=== PATIENT | male | born 1960 | race Caucasian/White ===

== ENCOUNTER 2017-04-08 11:01 | Outpatient (CLI) | payer BC ==
[~2017-04-08] VITALS: Ht 175.3 cm; Wt 76.8 kg
--- NOTE | ~2017-04-08 | HEMODYNAMI ---
PATIENT:SONAL CUNNINGHAM MEDICAL RECORD: [id number] : 56 LOCATION:[facility] ADMISSION DATE: 04/08/17 Generatedon:04/08/201713:20 Patient name: SONAL CUNNINGHAM Patient #: [id number] SSN: DO B: 1960 Date of study: 04/08/2017 Page: Of Hemodynamic Procedure Report Patient Data Patient Demographics Procedure consent was obtained First Name: SONAL Gender: Male Last Name: MARISA : 1960 Patient #: [id number] Age: 56 year(s) Race: Unknown Additional ID: [id number] Contact details Address: [address] [place] [address] ROAD State: [place] City: [place] Zip code: [address] Admission Admission Data Admission Date: 04/08/2017 Admission Time: 11:01 Procedure Procedure Types Cath Procedure Diagnostic Procedure ROLANDO Procedure Description Procedure Date Procedure Date: 04/08/2017 Procedure Start Time: 12:57 Procedure End Time: 13:19 Procedure Staff Name Function Jose Lewis MD Performing Physician Jagdeep Jo RT Monitor Mario Banks MD Additional personnel Arin Benitez RN Nurse Valentina Gonzalez RT Plate Conditioner Sam Vora Nremt Procedure Data Procedure Complications No complications Procedure Medications Medication Administration Route Dosage Oxygen NC 2 l/min Hurricaine Stratham P[address]O. [address] Sprays Hemodynamics Rest Heart Rate: 70 (bpm) Snapshots Pre Cath Intra NCS Post Cath Vital Signs Time Heart Resp SPO2 etCO2 NIBP (mmHg) Rhythm Pain Sedation Rate (ipm) (%) (mmHg) Status Level (bpm) 12:38:39 63 18 100 37.3 134/67(109) NSR 0 (11) 10(A) , No pain 12:43:44 64 14 100 38.8 132/72(108) NSR 0 (11) 10(A) , No pain 12:48:00 66 15 99 37.3 128/66(102) NSR 0 (11) 10(A) , No pain 12:52:20 65 17 100 38.8 125/69(105) NSR 0 (11) 10(A) , No pain 12:56:38 81 29 99 28.9 122/71(104) NSR 0 (11) 9(A) , No pain 13:01:38 79 16 99 24.3 Measuring NSR 0 (11) 9(A) , No pain 13:01:39 79 16 99 30.4 158/96(133) NSR 0 (11) 9(A) , No pain 13:05:58 67 23 100 31.9 126/68(97) NSR 0 (11) 9(A) , No pain 13:10:16 64 15 100 37.3 120/63(87) NSR 0 (11) 9(A) , No pain 13:14:32 61 16 100 38.8 109/59(80) NSR 0 (11) 9(A) , No pain 13:18:46 62 15 100 38.8 109/59(85) NSR 0 (11) 10(A) , No pain Medications Time Medication Route Dose Verified Delivered Reason Notes Effective ness by by 12:39:12 Oxygen NC 2 Arin Hinkle used for l/min Eli Benitez RN procedure 12:54:50 Hurricaine P[address] Arin Garcia Per Stratham Sprays Eli Vogel. John physician Procedure Log Time Note 12:15:39 Jagdeep Jo RT(R) sent for patient. Start room use. 12:30:24 [facility] Machinery Mover present for ROLANDO. 12:34:13 Patient arrived from Pre/Post Procedure Room to [facility] 3. Patient remains on bed/stretcher for procedure. 12:36:54 Time tracking: Regular hours 12:36:58 Plan of Care:Hemodynamics will remain stable., Cardiac rhythm will remain stable., Comfort level will be maintained., Respiratory function will remain adequate., Patient/ family verbilizes understanding of procedure., Procedure tolerated without complication., Recovers from procedure without complications.. 12:37:24 Warm blankets applied, and catalina hugger turned on for patient comfort. 12:37:25 Correct patient and procedure confirmed by team. 12:37:26 Signed procedure consent form obtained from patient. 12:37:27 ECG and BP/O2 sat monitors applied to patient. 12:37:29 Vital chart was started 12:38:25 Baseline sample Acquired. 12:38:28 Rhythm: sinus rhythm 12:38:29 Full Disclosure recording started 12:38:37 H&P Date Dictated: 04/08/2017 Within 30 days and on chart., H&P Addendum completed by physician on day of procedure. (MUST COMPLETE FOR ALL OUTPATIENTS). 12:38:38 Pre-procedure instructions explained to patient. 12:38:39 Pre-op teaching completed and patient verbalized understanding. 12:38:44 Family in patients room. 12:38:45 Patient NPO since Midnight. 12:38:47 Is the patient allergic to Iodine/contrast media? No. 12:38:48 Is patient on blood thinner?No 12:38:50 Patient diabetic? No. 12:38:52 Previous problem with sedation/anesthesia? No ? 12:38:53 Snore? No 12:38:54 Sleep apnea? No 12:38:55 Deviated septum? No 12:38:55 Opens mouth fully? Yes 12:38:56 Sticks out tongue? Yes 12:38:58 Airway obstruction? No ? 12:38:59 Dentures? No ? 12:39:12 Oxygen 2 l/min NC was administered by Arin Benitez RN; used for procedure; 12:41:54 Patient pain scale 0/10 ?. 12:42:04 IV patent on arrival in left antecubital with 0.9% NaCl at [facility]. 12:42:22 Lab results completed and on chart. 12:42:25 Alarms reviewed by Renea Batista 12:44:02 Pt prepped for ROLANDO. 12:52:33 Mario Banks MD present and monitoring patient for TIVA. 12:53:03 --------ALL STOP TIME OUT------ 12:53:04 Final Timeout: patient, procedure, and site verified with staff and physician. All members of the team are in agreement. 12:53:12 Physical assessment completed. ASA score P 2 - A patient with mild systemic disease as per Jose Lewis MD. 12:53:17 Sedation plan: TIVA Medication:Propofol 12:54:50 Hurricaine Stratham 1 Sprays P.O. was administered by Jose Lewis MD; Per physician; 12:57:25 Procedure started. 12:57:45 ROLANDO started. 13:07:17 ROLANDO completed. 13:07:21 Procedure ended.(Physican Out) 13:07:54 Post-procedure physical assessment completed. ASA score P 2 - A patient with mild systemic disease as per Jose Lewis MD. 13:07:57 Post procedure rhythm: unchanged. 13:07:59 Post procedure instruction explained to patient.Patient verbalizes understanding. 13:08:00 Patient needs reinforcement of post procedure teaching. 13:08:13 Procedure and supply charges have been captured, reviewed, submitted and are correct. 13:08:16 Procedure Complication : No complications 13:19:23 Vital chart was stopped 13:19:24 See physician's report for complete and final results. 13:19:39 Report given to Pre/Post Procedure Room. 13:19:45 Patient transfered to Pre/Post Procedure Room with Stretcher. 13:19:47 Procedure ended. 13:19:47 Full Disclosure recording stopped 13:19:56 End room use (Document Last) Signature Audit [place] Stage Time Signature Unsigned Intra-Procedure 04/08/2017 Jagdeep Jo 1:20:17 PM RT(R) Signatures Monitor : Jagdeep Jo RT Signature : Date : Time : [address] [id number]
--- NOTE | ~2017-04-08 | TEE ---
PATIENT:SONAL CUNNINGHAM MEDICAL RECORD: [id number] LOCATION:D.[facility] AGE OF PATIENT: 56 ADMISSION DATE: 04/08/17 SEX: M REFERRING PHYSICIAN: INTERPRETING PHYSICIAN: BETH ALANIZ MD TRANSESOPHAGEAL ECHOCARDIOGRAM ROLANDO CHARGE Y INDICATIONS: MITRAL REGURG PREMEDICATIONS: PATIENT'S RESPONSE PROCEDURE DOPPLER MEASUREMENTS: LVIT LA PA RA LVOT RVOT Asc. Ao AV Gradient Peak AV Mean AV Area MV Gradient Peak MV Mean MV Area INTERPRETATION: Doppler: 2-D: COLOR FLOW DOPPLER NORMAL SALINE STUDY: MISCELLANOUS: DIAGNOSIS: PLAN: Trencher Driver:3 Dr. Lewis Organizational Consultant: Kaiden BLEDSOE COMMENTS: PATIENT OF DATE OF SERVICE: 04/08/2017 PROCEDURE: After general anesthesia via TIVA, the transesophageal Omniplane probe was placed into the distal esophagus and proximal stomach without difficulty. FINDINGS: No LVH. LV internal dimensions are normal. Wall motion is normal. EF is greater than or equal to 55%. The aortic valve is tricuspid. There is no evidence of stenosis by 2D inspection. No significant AI by color flow imaging. TRANSESOPHAGEAL ECHOCARDIOGRAM REPORT [id number] SONAL CUNNINGHAM Left atrium appears of normal dimensions. Left atrial appendage well visualized with good contractility by 2D and Doppler. The mitral valve shows prolapsed anterior leaflets and probable ruptured chordae seen on the atrial side of the valve apparatus. Severe MR and eccentric jet is noted. Right-sided chambers and RV internal dimensions appear small. 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 Both the atrial septum and ventricular septum are well visualized and are intact at the end of procedure. The probe was turned posteriorly and this shows calcification of the descending aorta with no significant luminal debris. IMPRESSION: 1. Mitral valve prolapse with probable ruptured chordae, severe mitral regurgitation. 2. Dilated right atrium, but no significant TR. TRANSINT:[id number] Voice Confirmation ID: [id number] DOCUMENT ID: [id number] BETH ALANIZ MD CC: [id number] DICTATION DATE: 04/08/17 1318 PEARL HAND: 04/09/17 1037 DEP CLI 04/08/17 [facility] [address] [place] [address]
[2017-04-08 11:22] VITALS: BP 130/80; Ht 175.3 cm; Wt 76.8 kg
[2017-04-08 11:31] LABS: BASOPHILS 0.3 % (0-2); HEMATOCRIT 44.1 % (42.0-54.0); HEMOGLOBIN 15.3 g/dL (13.5-17.5); IMMATURE GRANULOCYTES 0.2 % (0-5); LYMPHOCYTES 26.6 % (15-50); MCH 31.7 pg (26.0-34.0); MCHC 34.7 g/dL (31.0-37.0); MCV 91.5 fL (80.0-100.0); MEAN PLATELET VOLUME 11.8 fL (7.4-10.4); MONOCYTES 10.5 % (2-11); NEUTROPHILS 59.4 % (40-80); PLATELET COUNT 163 10x3/uL (130-400); RBC 4.82 10x6/uL (4.20-6.10); RDW 13.3 % (11.5-14.5); WBC 5.7 10x3/uL (4.8-10.8)
[2017-04-08 11:45] LABS: INR 0.98 (0.85-1.17); PROTIME 12.6 SECONDS (11.6-15.0)
[2017-04-08 11:51] LABS: CALC OSMOLALITY 278 mosm/kg (275-300); CALCIUM 8.7 mg/dL (8.5-10.1); CARBON DIOXIDE 30.8 mmol/L (21.0-32.0); CHLORIDE - SERUM 104 mmol/L (98-107); CREATININE - SERUM 0.9 mg/dL (0.6-1.3); GLUCOSE 93 mg/dL (74-106); SODIUM 139 mmol/L (136-145); UREA NITROGEN 15 mg/dL (7-18); eGFR NON AFRICAN AMERICAN > 90 mL/min (90-120)
== END 2017-04-08 14:21 | disposition home or self-care (01) ==
LOC: D.CATH 11:01
PROVIDERS: Anesthesiology
DX: I34.0 Nonrheumatic mitral (valve) insufficiency (principal); I34.1 Nonrheumatic mitral (valve) prolapse; I51.7 Cardiomegaly; Z01.812 Encounter for preprocedural laboratory examination